=== PATIENT | female | born 1960 | race Caucasian/White ===

== ENCOUNTER 2024-12-17 12:46 | Emergency (ER) | payer BC | END 2024-12-17 15:45 | disposition home or self-care (01) | LOC: FB.DI 12:46 → FB.ED 12:46 → EDSTATUS 12:58 → FB.ED 15:45 | DX: I47.10 Supraventricular tachycardia, unspecified (principal); I10 Essential (primary) hypertension; Z79.899 Other long term (current) drug therapy | CPT/HCPCS: 36415; 84484; 86140; 99284 ==